=== PATIENT | female | born 1990 | race Caucasian/White ===

== ENCOUNTER 2016-11-07 18:06 | Emergency (ER) | payer OTHER ==
[~2016-11-07] VITALS: Ht 165.1 cm; Wt 59.1 kg
[2016-11-07] MEDS ORDERED: FIORICET,ESG1 TABLET PO (20:37)
[2016-11-07 20:45] VITALS: BP 135/75
== END 2016-11-07 20:46 | disposition home or self-care (01) ==
LOC: EME 18:06
DX: F07.81 Postconcussional syndrome (principal); R51 Headache; W01.198A Fall on same level from slipping, tripping and stumbling with subsequent striking against other object, initial encounter; Y93.01 Activity, walking, marching and hiking
CPT/HCPCS: 70450; 99281; 99283